=== PATIENT | male | born 1980 | race Caucasian/White ===

== ENCOUNTER 2023-05-01 13:54 | Inpatient (IN) | payer MEDICAID, OTHER ==
[~2023-05-01] VITALS: Ht 180.3 cm; Wt 91.6 kg
[2023-05-01] MEDS ORDERED: IOHEXOL-350 100 ML BOTTLE ONE (14:50)
[2023-05-01 15:15] LABS: BASOPHILS % 0.6 % (0.0-2.0); EOSINOPHILS % 2.7 % (0.0-5.0); HEMATOCRIT. 40.5 % (42.0-52.0); HEMOGLOBIN. 13.4 g/dL (14.0-18.0); LYMPHOCYTES % 17.7 % (20.0-50.0); MEAN CORPUSCULAR HEMOGLOBIN 30.6 pg (28.0-32.0); MEAN CORPUSCULAR HGB CONC 33.2 g/dL (31.0-37.0); MEAN CORPUSCULAR VOLUME 92.1 fL (80.0-94.0); MEAN PLATELET VOLUME 8.2 fl (7.4-10.4); MONOCYTES % 9.7 % (2.0-8.0); NEUTROPHILS % 69.3 % (40.0-76.0); PLATELET 233 x1000/uL (130-400); RED CELL DISTRIBUTION WIDTH 13.3 % (11.6-14.6); WHITE BLOOD COUNT 5.9 x1000/uL (4.5-11.0)
[2023-05-01 15:21] LABS: INR 1.2; PROTHROMBIN TIME 12.4 sec (9.6-11.0)
[2023-05-01 15:24] LABS: CHLORIDE 110 mEq/L (98-107); INDEX HEMOLYSI 1 (1-3); INDEX ICTERIC 1 (1-4); INDEX LIPEMIC 1 (1-3); POTASSIUM 3.8 mEq/L (3.5-5.1); SODIUM 139 mEq/L (136-145)
[2023-05-01 15:36] LABS: ALANINE AMINOTRANSFERASE 37 IU/L (13-61); ALBUMIN 2.8 g/dL (3.4-5.0); ASPARTATE AMINOTRANSFERASE 32 IU/L (15-37); BILIRUBIN TOTAL 0.4 mg/dL (0.1-1.0); CALCIUM 7.9 mg/dL (8.5-10.1); CARBON DIOXIDE 25 mEq/L (21-32); CREATININE 1.1 mg/dL (0.6-1.3); ETHANOL BLOOD < 10 mg/dL (<10); GLUCOSE 87 mg/dL (70-105); TROPONIN I HIGH SENSITIVITY 52 ng/L (<78); UREA NITROGEN BLOOD 15 mg/dL (7-21)
[2023-05-01 17:42] LABS: TROPONIN I HIGH SENSITIVITY 56 ng/L (<78)
[2023-05-01 18:00] VITALS: BP 102/81; PULSE 105; RESP 20; TEMP 98
[2023-05-01] MEDS ORDERED: ASPIRIN 81MG TABLET PO SCH (18:45)
[2023-05-01] MEDS ORDERED: ATOR40TA70 MT (19:23)
[2023-05-01] MEDS ORDERED: SPIR25TA6 MT (19:27)
[2023-05-01] MEDS ORDERED: CARV3.1242 MT (19:27)
[2023-05-01] MEDS ORDERED: SACU1TAB4 MT (19:27)
[2023-05-01] MEDS ORDERED: GABA-529 MT (19:27)
[2023-05-01 20:00] VITALS: BP 117/71; PULSE 73; RESP 20; TEMP 97.8
[2023-05-01] MEDS: ATORVASTATIN CALCIUM 40MG TABLET PO SCH (21:33)
[2023-05-01 22:00] VITALS: BP 117/71; PULSE 73; RESP 20; TEMP 97.8
[2023-05-02] VITALS: BP 106/71; PULSE 108; RESP 20; TEMP 97.5
[2023-05-02 04:00] VITALS: BP 112/76; PULSE 109; RESP 20; TEMP 97.5
[2023-05-02 06:45] LABS: BASOPHILS % 0.6 % (0.0-2.0); EOSINOPHILS % 2.9 % (0.0-5.0); HEMATOCRIT. 41.8 % (42.0-52.0); HEMOGLOBIN. 14.4 g/dL (14.0-18.0); MEAN CORPUSCULAR HEMOGLOBIN 31.7 pg (28.0-32.0); MEAN CORPUSCULAR HGB CONC 34.5 g/dL (31.0-37.0); MEAN PLATELET VOLUME 8.6 fl (7.4-10.4); MONOCYTES % 9.2 % (2.0-8.0); NEUTROPHILS % 72.3 % (40.0-76.0); PLATELET 245 x1000/uL (130-400); RED BLOOD CELL COUNT 4.55 mill/uL (4.7-6.1); RED CELL DISTRIBUTION WIDTH 13.2 % (11.6-14.6); WHITE BLOOD COUNT 6.5 x1000/uL (4.5-11.0)
[2023-05-02 08:00] VITALS: BP_SYST 105; BP_SYST 119; BP_DIAS 79; BP_DIAS 86; PULSE 107; PULSE 109; RESP 18; RESP 20; TEMP 97
[2023-05-02] MEDS ORDERED: ASPIRIN 81MG TABLET PO SCH ×2 (09:00→18:15)
[2023-05-02 10:02] LABS: CALCIUM 8.4 mg/dL (8.5-10.1); CHLORIDE 111 mEq/L (98-107); INDEX HEMOLYSI 1 (1-3); INDEX ICTERIC 1 (1-4); INDEX LIPEMIC 1 (1-3); POTASSIUM 4.4 mEq/L (3.5-5.1); SODIUM 141 mEq/L (136-145)
[2023-05-02 10:18] LABS: CREATININE 1.3 mg/dL (0.6-1.3); GLUCOSE 96 mg/dL (70-105); UREA NITROGEN BLOOD 14 mg/dL (7-21)
[2023-05-02 12:00] VITALS: BP 121/84; PULSE 103; RESP 20; TEMP 96.7
[2023-05-02 12:00] LABS: CARBON DIOXIDE 22 mEq/L (21-32)
[2023-05-02] MEDS: SPIRONOLACTONE 25MG TABLET PO SCH (14:34)
[2023-05-02 14:36] LABS: CLARITY URINE CLEAR (CLEAR); COLOR URINE YELLOW (YELLOW); GLUCOSE URINE NEGATIVE (NEGATIVE); KETONES URINE NEGATIVE (NEGATIVE); LEUKOCYTE ESTERASE URINE NEGATIVE (NEGATIVE); NITRITE URINE NEGATIVE (NEGATIVE); OCCULT BLOOD URINE NEGATIVE (NEGATIVE); PROTEIN URINE NEGATIVE (NEGATIVE); UROBILINOGEN URINE 0.2 E.U./dL (0.2-1.0)
[2023-05-02 15:12] LABS: *AMPHETAMINES SCREEN URINE PRESUMTIVE POSITIVE (NEGATIVE); *BARBITURATES SCREEN URINE NEGATIVE (NEGATIVE); *BENZODIAZEPINES SCREEN URINE NEGATIVE (NEGATIVE); *COCAINE SCREEN URINE NEGATIVE (NEGATIVE); CANNABINOID URINE SCREEN NEGATIVE (NEGATIVE); ECSTASY MDMA SCREEN URINE NEGATIVE (NEGATIVE); METHADONE URINE SCREEN NEGATIVE (NEGATIVE); OPIATES URINE SCREEN NEGATIVE (NEGATIVE); PHENCYCLIDINE URINE SCREEN NEGATIVE (NEGATIVE)
[2023-05-02 16:00] VITALS: BP 119/80; PULSE 110; RESP 20; TEMP 96.7
[2023-05-02] MEDS ORDERED: ONDANSETRON HCL 4MG/2ML INJ IV PRN (18:45)
[2023-05-02] MEDS ORDERED: ACETAMINOPHEN 325MG TABLET PO PRN (18:45)
[2023-05-02] MEDS ORDERED: CLONIDINE 0.1MG TABLET PO PRN (18:45)
[2023-05-02] MEDS: CLOPIDOGREL 75MG TABLET PO SCH (18:47)
[2023-05-02 20:00] VITALS: BP 112/72; PULSE 111; RESP 20; TEMP 97.7
[2023-05-02] MEDS: CARVEDILOL 3.125 MG TABLET PO SCH (22:30)
[2023-05-02] MEDS: ATORVASTATIN CALCIUM 40MG TABLET PO SCH (22:30)
[2023-05-03] VITALS: BP 105/75; PULSE 109; RESP 19; TEMP 97.9
[2023-05-03 04:00] VITALS: BP 107/78; PULSE 108; RESP 21; TEMP 98.2
[2023-05-03 08:00] VITALS: BP 115/76; PULSE 99; RESP 19; TEMP 96.3
[2023-05-03 08:21] LABS: BASOPHILS % 0.5 % (0.0-2.0); EOSINOPHILS % 2.4 % (0.0-5.0); HEMATOCRIT. 44.5 % (42.0-52.0); HEMOGLOBIN. 15.1 g/dL (14.0-18.0); LYMPHOCYTES % 13.6 % (20.0-50.0); MEAN CORPUSCULAR HEMOGLOBIN 31.5 pg (28.0-32.0); MEAN CORPUSCULAR VOLUME 92.7 fL (80.0-94.0); MEAN PLATELET VOLUME 8.7 fl (7.4-10.4); MONOCYTES % 9.6 % (2.0-8.0); NEUTROPHILS % 73.9 % (40.0-76.0); PLATELET 262 x1000/uL (130-400); RED CELL DISTRIBUTION WIDTH 13.3 % (11.6-14.6); WHITE BLOOD COUNT 6.5 x1000/uL (4.5-11.0)
[2023-05-03 08:40] LABS: CHLORIDE 109 mEq/L (98-107); INDEX HEMOLYSI 2 (1-3); INDEX ICTERIC 1 (1-4); INDEX LIPEMIC 1 (1-3); POTASSIUM 4.4 mEq/L (3.5-5.1); SODIUM 137 mEq/L (136-145)
[2023-05-03 08:53] LABS: CALCIUM 8.2 mg/dL (8.5-10.1); CARBON DIOXIDE 23 mEq/L (21-32); CHOLESTEROL 106 mg/dL (<200); GLUCOSE 104 mg/dL (70-105); HDL CHOLESTEROL 33 mg/dL (40-59); LDL CHOLESTEROL 65 mg/dL (5-100); TRIGLYCERIDE 162 mg/dL (0-150); UREA NITROGEN BLOOD 12 mg/dL (7-21)
[2023-05-03] MEDS ORDERED: ENOXAPARIN 40MG/0.4ML SYR SUBCUT SCH (09:00)
[2023-05-03] MEDS ORDERED: ASPIRIN 81MG TABLET PO SCH (09:00)
[2023-05-03] MEDS: CARVEDILOL 3.125 MG TABLET PO SCH (09:17)
[2023-05-03] MEDS: CLOPIDOGREL 75MG TABLET PO SCH (09:18)
[2023-05-03] MEDS: SPIRONOLACTONE 25MG TABLET PO SCH (09:18)
[2023-05-03] MEDS ORDERED: METOPROLOL TARTRATE 50MG TABLET PO NR (10:00)
[2023-05-03 12:00] VITALS: BP 119/76; PULSE 96; RESP 19; TEMP 96.9
[2023-05-03] MEDS ORDERED: REGADENOSON 0.4 MG/5 ML IV NR (12:30)
[2023-05-03 16:00] VITALS: BP 126/75; PULSE 112; RESP 18; TEMP 97.9
[2023-05-03] MEDS ORDERED: CLOP-31 MT (18:00)
[2023-05-03 18:04] VITALS: BP 126/75; PULSE 112; TEMP 97.9; O2SAT 95
[2023-05-03] MEDS ORDERED: CARVEDILOL 6.25 MG TABLET PO SCH (21:00)
== END 2023-05-03 18:32 | disposition home health service (06) | DRG 45 ==
LOC: ER 13:54 → 8WST 17:53
PROVIDERS: ADMIT Internal Medicine; ATTEND Internal Medicine
DX: I63.9 Cerebral infarction, unspecified (principal); I27.20 Pulmonary hypertension, unspecified; I42.9 Cardiomyopathy, unspecified; E46 Unspecified protein-calorie malnutrition; G81.91 Hemiplegia, unspecified affecting right dominant side; E83.51 Hypocalcemia; I95.9 Hypotension, unspecified; I11.0 Hypertensive heart disease with heart failure; I50.22 Chronic systolic (congestive) heart failure; F17.210 Nicotine dependence, cigarettes, uncomplicated; I08.1 Rheumatic disorders of both mitral and tricuspid valves; J45.909 Unspecified asthma, uncomplicated; R29.702 NIHSS score 2; E78.5 Hyperlipidemia, unspecified; D64.9 Anemia, unspecified; Z88.6 Allergy status to analgesic agent; Z79.899 Other long term (current) drug therapy; I25.2 Old myocardial infarction; Z86.73 Personal history of transient ischemic attack (TIA), and cerebral infarction without residual deficits; Z79.82 Long term (current) use of aspirin; Z79.02 Long term (current) use of antithrombotics/antiplatelets; Z68.28 Body mass index [BMI] 28.0-28.9, adult
CPT/HCPCS: 36415; 70496; 70498; 70551; 71045; 80048; 80053; 80061; 80305; 80320; 81003; 82962; 83036; 83880; 84484; 85025; 93005; 93306; 97162; 97166; 99291; J1650; Q9967; G0480

== ENCOUNTER 2023-08-14 14:04 | Emergency (ER) | payer MEDICAID, OTHER ==
[~2023-08-14] VITALS: Ht 182.9 cm; Wt 86.0 kg
[~2023-08-14 14:04] MED LIST: ATOR40TA70 MT; CARV3.1242 MT; CLOP-31 MT; GABA-529 MT; SACU1TAB4 MT; SPIR25TA6 MT
[2023-08-14 14:09] VITALS: BP 110/83; TEMP 98; O2SAT 100
[2023-08-14 14:10] VITALS: PULSE 57; RESP 16
[2023-08-14 14:37] LABS: BASOPHILS % 0.7 % (0.0-2.0); EOSINOPHILS % 2.1 % (0.0-5.0); HEMOGLOBIN. 14.5 g/dL (14.0-18.0); LYMPHOCYTES % 15.6 % (20.0-50.0); MEAN CORPUSCULAR HEMOGLOBIN 30.4 pg (28.0-32.0); MEAN CORPUSCULAR HGB CONC 32.8 g/dL (31.0-37.0); MEAN CORPUSCULAR VOLUME 92.5 fL (80.0-94.0); MEAN PLATELET VOLUME 8.3 fl (7.4-10.4); MONOCYTES % 8.5 % (2.0-8.0); NEUTROPHILS % 73.1 % (40.0-76.0); PLATELET 264 x1000/uL (130-400); RED BLOOD CELL COUNT 4.76 mill/uL (4.7-6.1); RED CELL DISTRIBUTION WIDTH 14.7 % (11.6-14.6); WHITE BLOOD COUNT 7.2 x1000/uL (4.5-11.0)
[2023-08-14 14:55] LABS: ALANINE AMINOTRANSFERASE 17 IU/L (10-49); ALBUMIN 3.9 g/dL (3.2-4.8); ASPARTATE AMINOTRANSFERASE 24 IU/L (<34); BILIRUBIN TOTAL 0.5 mg/dL (0.1-1.0); CALCIUM 8.6 mg/dL (8.7-10.4); CARBON DIOXIDE 24 mEq/L (21-32); CHLORIDE 108 mEq/L (98-107); GLUCOSE 90 mg/dL (70-105); POTASSIUM 4.7 mEq/L (3.5-5.1); PROTEIN TOTAL 6.8 g/dL (6.0-8.3); SODIUM 140 mEq/L (136-145); UREA NITROGEN BLOOD 11 mg/dL (9-23)
[2023-08-14 14:58] LABS: TROPONIN I HIGH SENSITIVITY 561 ng/L (3.0-53)
[2023-08-14 17:00] LABS: TROPONIN I HIGH SENSITIVITY 529 ng/L (3.0-53)
== END 2023-08-14 21:46 | disposition left against medical advice (07) ==
LOC: ER 15:09 → EDBEDREQ 17:24 → CANBEDREQ 21:46 → ER 21:46
DX: I50.23 Acute on chronic systolic (congestive) heart failure (principal); I21.3 ST elevation (STEMI) myocardial infarction of unspecified site; I25.2 Old myocardial infarction; Z88.6 Allergy status to analgesic agent; Z86.73 Personal history of transient ischemic attack (TIA), and cerebral infarction without residual deficits
CPT/HCPCS: 36415; 71045; 80053; 83880; 84484; 85025; 93005; 99291